=== PATIENT | male | born 1935 | race Caucasian/White ===

== ENCOUNTER 2018-11-05 13:24 | Inpatient (IN) | payer MEDICARE ==
--- NOTE | 2018-11-05 13:44 | ED Physician Chart ---
ED Chief Complaint/HPI - Patient Information Date Seen:: 11/05/18 Time Seen:: 13:30 Chief Complaint:: Generalized weakness for about 3 days. History of Present Illness:: Brought in by ambulance because pt has had generalized weakness for about 3 days. Pt states that he has not been taking po well because he had recurrent nausea/vomiting until yesterday. Vomitus consists of gastric content. No hematemesis. Last BM about 2 days ago that was slightly loose. No hematochezia or melena. No fever. No lightheadedness. No abdominal pain, chest pain, or any other bodily pain. Allergies:: NKA Vitals:: see Nurse Note. Historian:: Patient Family MD/PCP:: Dr. Dee LMP:: N/A Review:: Nurse's Note Reviewed ED Review of Systems - Review of Systems General/Constitutional: No fever, No chills, Weight loss, Weakness (generalized weakness.), No edema, Loss of appetite Skin: No skin lesions, No rash, No bruising Head: No headache, No light-headedness Eyes: No loss of vision, No pain ENT: No earache, No nasal drainage, No sore throat Neck: No neck pain, No swelling, No thyromegaly, No stiffness, No mass noted Cardio Vascular: No chest pain, No palpitations, No edema Pulmonary: No SOB, No cough, No wheezing GI: Nausea (resolved since yesterday.), Vomiting (resolved since yesterday.), No diarrhea, No pain, No melena, No hematochezia, No constipation, No hematemesis G/U: No dysuria, No frequency, No hematuria Musculoskeletal: No bone or joint pain, No back pain Endocrine: No polyuria, No polydipsia Psychiatric: Prior psych history (on antidepressant.), No depression (at the present.), No anxiety, No suicidal ideation, No homicidal ideation, No auditory hallucination, No visual hallucination Hematopoietic: No bruising, No lymphadenopathy Allergic/Immuno: No urticaria, No angioedema Neurological: No syncope, No focal symptoms, Weakness (generalized weakness, see HPI.), No paresthesia, No headache, No dizziness, No confusion ED Past Medical History - Past Medical History Past Medical History: HTN, Other Family History: None Social History: Smoker, Alcohol, No Drug Use, , Other (lives with a roommate.) Employment:: Retired. Surgical History: None Psychiatricy History: Depression Medication: Reviewed Family Medical History - Family Member Mother History Unknown: Yes ED Physical Exam - Physical Examination General/Constitutional: Awake, Well-developed, well-nourished (elderly male.), No distress, GCS 15, Non-toxic appearing Other Gen/Cons comments:: Breathes comfortably, speaks clearly, and interacts normally. Head: Atraumatic Eyes: Lids, conjuctiva normal, PERRL, EOMI Skin: No rash, No ecchymosis, No lymphadenopathy Other Skin comments:: Mucous membrane is slightly dry. ENMT: External ears, nose nl, Nasal exam nl, Oropharynx nl Neck: Nontender, Full ROM w/o pain, No JVD, No nuchal rigidity, No bruit, No mass Respiratory: Nl effort/Exclusion, Clear to Auscultation, No Wheeze/Rhonchi/Rales Cardio Vascular: No murmur, gallop, rubs Other Cardio Vascular comments:: Slightly irregular. GI: No tenderness/rebounding/guarding, No organomegaly, Normal BS's, Nondistended Other GI comments:: Abdomen is soft. : No CVA tenderness Extremities: No tenderness or effusion, Full ROM, No edema Neuro/Psych: Alert/oriented (oriented x 3), Judgement/insight normal, Mood normal, No focal deficits ED Labs/Radiology/EKG Results - Lab Results Results: Laboratory Results - last 24 hr 11/05/18 11/05/18 11/05/18 14:05 14:05 14:05 WBC 7.6 RBC 3.10 L Hgb 11.1 L Hct 32.6 L MCV 104.9 H MCH 35.7 H MCHC Differential 34.0 RDW 12.8 Plt Count 112 L MPV 8.6 Neutrophils % 71.8 Lymphocytes % 14.7 L Monocytes % 12.4 H Eosinophils % 0.3 Basophils % 0.8 PT 10.3 INR 0.99 PTT (Actin FS) 25.4 L Sodium 133 L Potassium 3.2 L Chloride 91 L Carbon Dioxide 30.6 Anion Gap 14.6 BUN 32 H Creatinine 1.4 H Est GFR ( Amer) TNP Est GFR (Non-Af Amer) TNP BUN/Creatinine Ratio 22.9 Glucose 114 H Calcium 9.0 Total Bilirubin 1.9 H AST 64 H ALT 36 Alkaline Phosphatase 68 Troponin I Total Protein 5.8 L Albumin 3.1 L Globulin 2.7 Albumin/Globulin Ratio 1.2 11/05/18 14:05 WBC RBC Hgb Hct MCV MCH MCHC Differential RDW Plt Count MPV Neutrophils % Lymphocytes % Monocytes % Eosinophils % Basophils % PT INR PTT (Actin FS) Sodium Potassium Chloride Carbon Dioxide Anion Gap BUN Creatinine Est GFR ( Amer) Est GFR (Non-Af Amer) BUN/Creatinine Ratio Glucose Calcium Total Bilirubin AST ALT Alkaline Phosphatase Troponin I 0.15 H* Total Protein Albumin Globulin Albumin/Globulin Ratio - EKG Interpretations EKG Time:: 14:17 Rate & Rhythm: Atrial fibrillation with VR 98. Comments:: PVC's. No acute ischemic changes. ED Septic Shock - . Is Septic Shock (SBP<90, OR Lactate>4 mmol\L) present?: No ED Reassessment (Disposition) - Reassessment Reassessment:: 1520 Pt has been repeatedly evaluated. Pt remains stable without chest pain or discomfort. No dyspnea or lightheadedness. EKG and lab findings have been reviewed with pt. Management plan has been discussed. 1650 Case was discussed with Dr. Webster with pertinent info reviewed. Pt is to be admitted to Telemetry [facility] under his care. Reassessment Condition:: Improved - Diagnosis Diagnosis:: New onset atrial fibrillation with mildly elevated troponin. Renal insufficiency with elevated BUN/Creatinine c/w pre-renal azotemia. Mild hyponatremia. Mild hypokalemia. Mild anemia. Mild hyperglycemia. Mild hyperbilirubinemia of unknown significance. Consider Gilbert Syndrome. - Patient Disposition Admitted to:: Telemetry Admitting Medical Physician:: Bon Webster Time:: 16:50 Condition at Disposition:: Stable, Improved
[2018-11-05] MEDS ORDERED: Sodium Chloride 0.9% 1,000 ML IV SCH (13:54)
[2018-11-05 14:14] LABS: % BASOPHILS 0.8 % (0.0-2.0); % EOSINOPHILS 0.3 % (0.0-5.0); % LYMPHOCYTES 14.7 % (20.0-50.0); % MONOCYTES 12.4 % (2.0-10.0); % NEUTROPHILS 71.8 % (40.0-80.0); BASOPHILE ABSOLUTE 0.1 Th/cumm (0-0.2); HEMATOCRIT 32.6 % (41.0-60); HEMOGLOBIN 11.1 gm/dL (12-16); LYMPHOCYTE ABSOLUTE 1.1 Th/cmm (1.5-3.0); MEAN CELL VOLUME 104.9 fl (80-99); MEAN CORPUSCULAR HEMOGLOBIN 35.7 pg (27.0-31.0); MEAN PLATELET VOLUME 8.6 fl; MONOCYTE ABSOLUTE 0.9 Th/cmm (0.3-1.0); NEUTROPHILE ABSOLUTE 5.5 Th/cmm (1.8-8.0); PLATELET COUNT 112 Th/cmm (150-400); RED CELL DISTRIBUTION WIDTH 12.8 % (11.5-20.0); WHITE BLOOD COUNT 7.6 Th/cmm (4.8-10.8)
[2018-11-05 14:27] LABS: INR 0.99 (0.5-1.4); PROTHROMBIN TIME (TEST) 10.3 SECONDS (9.5-11.5)
[2018-11-05 14:31] LABS: ALB/GLOB RATIO 1.2 (1.0-1.8); ALBUMIN 3.1 gm/dL (4.2-5.5); ALKALINE PHOSPHATASE 68 U/L (34-104); ANION GAP 14.6 (7.0-16.0); BILIRUBIN,TOTAL 1.9 mg/dL (0.3-1.0); BUN - UREA NITROGEN 32 mg/dL (7-25); CARBON DIOXIDE 30.6 mEq/L (21.0-31.0); CHLORIDE 91 mEq/L (98-107); CREATININE - SERUM 1.4 mg/dL (0.7-1.3); GLUCOSE 114 mg/dL (70-105); POTASSIUM SERUM 3.2 mEq/L (3.5-5.1); SGOT 64 U/L (13-39); SGPT/ALT 36 U/L (7-52); SODIUM SERUM 133 mEq/L (136-145); TOTAL PROTEIN,SERUM 5.8 gm/dL (6.0-8.3)
[2018-11-05] MEDS ORDERED: Potassium Chloride 20 mEq ER Tab PO ONE ×2 (16:55→17:17)
[2018-11-05 19:15] LABS: URINE SOURCE CLEAN C
[2018-11-05 19:19] LABS: URINE BILIRUBIN MODERATE (NEGATIVE); URINE BLOOD NEGATIVE (NEGATIVE); URINE GLUCOSE (UA) NEGATIVE (NEGATIVE); URINE KETONE 15 mg/dL (NEGATIVE); URINE LEUKOCYTE ESTERASE NEGATIVE (NEGATIVE); URINE MICROSCOPIC INDICATED? YES; URINE NITRATE NEGATIVE (NEGATIVE); URINE PROTEIN TRACE mg/dL (NEGATIVE)
[2018-11-05] MEDS ORDERED: Morphine Sulfate 2 mg/mL 1mL Syr IVP PRN (19:23)
[2018-11-05] MEDS ORDERED: Ipratropium Neb 0.5 mg/2.5 mL UD HHN PRN (19:23)
[2018-11-05] MEDS ORDERED: Albuterol Nebulizer 2.5mg/3mL HHN PRN (19:23)
[2018-11-05 19:40] LABS: URINE CLARITY SLIGHT HAZY (CLEAR); URINE COLOR YELLOW
[2018-11-05 20:25] LABS: URINE EPITHELIAL CELLS RARE /lpf (FEW); URINE ICTOTEST POSITIVE (NEGATIVE); URINE RBC NONE SEEN /hpf (0-5)
[2018-11-05 20:26] LABS: URINE BACTERIA NONE SEEN /hpf (NONE SEEN); URINE WBC 0-2 /hpf (0-5)
--- NOTE | 2018-11-05 20:51 | History & Physical ---
ADMIT DATE: 11/05/2018 CHIEF COMPLAINT: Generalized weakness. HISTORY OF PRESENT ILLNESS: This is an 82-year-old male with history of hypertension, depression/anxiety, admitted from home secondary to not feeling well. The patient was brought to the ER, noted to have elevated troponin as well as irregular heartbeat, which the patient denied in the past. The patient denies chest pain, shortness of breath, or headache at this time. PAST MEDICAL HISTORY: As mentioned in history of present illness. PAST SURGICAL HISTORY: None. ALLERGIES: No known drug allergies. MEDICATIONS: Xanax, Celexa and lisinopril. FAMILY HISTORY: Noncontributory. SOCIAL HISTORY: The patient is a nonsmoker, nondrinker. The patient was an avid smoker, occasional drinker. No intravenous drug use. He is . The patient is retired. REVIEW OF SYSTEMS: GENERAL: Complains of not feeling well. HEENT: No blurred vision. LUNGS: No diagnosis of COPD or asthma. HEART: The patient with hypertension with atrial fibrillation. ABDOMEN: No nausea, vomiting, pain. GENITOURINARY: The patient denies increased frequency or dysuria. NEUROLOGIC: No headache, seizure or syncope. PSYCHIATRIC: As stated above. PHYSICAL EXAMINATION: VITAL SIGNS: Blood pressure 131/70, respiratory rate 18, pulse 70, temperature 98.9 GENERAL: Elderly male who appears his stated age. NECK: Supple. No mass. LUNGS: Equal breath sounds, few rhonchi. HEART: Irregularly irregular. Systolic ejection murmur. ABDOMEN: Soft, globular. EXTREMITIES: Positive excoriation. NEUROLOGIC: Limited. LABORATORY DATA: WBC 6.7, hemoglobin 11, platelets 112. Sodium 132, potassium 3.2, BUN 32, creatinine 1.4, glucose 114. Troponin 0.15. Bilirubin 1.9. UA moderate bilirubin. ASSESSMENT AND PLAN: New-onset atrial fibrillation, generalized weakness, anemia marked with macrocytosis, thrombocytopenia, hyponatremia, hypokalemia, renal insufficiency, elevated liver function tests, elevated troponin. We will continue the patient on oxygen and bronchodilator treatments. We will perform 2D echocardiogram. Check the patient's troponin. We will monitoring the patient's hemoglobin. Check occult blood. We will titrate the patient's antihypertensive medication. We will correct electrolyte abnormalities. We will check vitamin B12, folate. We will check the patient's hepatitis panel. We will refer the patient to Cardiology and perform 2D echocardiogram. We will follow the patient closely in Telemetry. JOB# [id number]
[2018-11-05] MEDS ORDERED: Enoxaparin 40 mg/0.4 mL 0.4mL Syr SUBQ SCH (21:00)
[2018-11-05] MEDS: D5-0.45NS 1,000 ML IV SCH (21:43)
[2018-11-05] MEDS: Enoxaparin 80 mg/0.8 mL 0.8mL Syr SUBQ SCH (22:16)
[2018-11-06 07:04] LABS: ANION GAP 10.5 (7.0-16.0); BUN - UREA NITROGEN 25 mg/dL (7-25); CALCIUM SERUM 8.6 mg/dL (8.6-10.3); CARBON DIOXIDE 30.3 mEq/L (21.0-31.0); CHLORIDE 95 mEq/L (98-107); GLUCOSE 107 mg/dL (70-105); SODIUM SERUM 133 mEq/L (136-145)
[2018-11-06 07:14] LABS: POTASSIUM SERUM 2.8 mEq/L (3.5-5.1)
[2018-11-06 08:00] LABS: EOSINOPHIL 1 % (0-5); LYMPHOCYTE 32 % (20-50); MONOCYTE 10 % (2-10); NEUTROPHILS 57 % (40-80)
[2018-11-06 08:01] LABS: PLATELET ESTIMATE DECREASED PLATELETS (NORMAL)
--- NOTE | 2018-11-06 08:12 | Diagnostic Imaging Report ---
KUB abdominal film HISTORY: Pain There is a nonspecific gas pattern of nondilated bowel. No free peritoneal air. Severe degenerative changes noted in the lower lumbar spine. IMPRESSION: 1. Nonspecific bowel gas pattern with no acute radiographic abnormalities
[2018-11-06 08:48] LABS: WHITE BLOOD COUNT 6.3 Th/cmm (4.8-10.8)
[2018-11-06] MEDS: Enoxaparin 80 mg/0.8 mL 0.8mL Syr SUBQ SCH ×2 (08:55→20:01)
[2018-11-06 08:58] LABS: HEMATOCRIT 29.9 % (41.0-60)
[2018-11-06 08:59] LABS: MEAN CELL VOLUME 106.7 fl (80-99); MEAN CORPUSCULAR HEMOGLOBIN 34.9 pg (27.0-31.0); MEAN CORPUSCULAR HGB CONC 32.6 pg (28.0-36.0); PLATELET COUNT 93 Th/cmm (150-400); RED CELL DISTRIBUTION WIDTH 12.8 % (11.5-20.0)
[2018-11-06 09:00] LABS: MEAN PLATELET VOLUME 8.3 fl
[2018-11-06 09:01] LABS: HEMOGLOBIN 9.8 gm/dL (12-16)
[2018-11-06] MEDS ORDERED: Potassium Chloride 40 MEQ, Lidocaine 1% 20mL Vial 25 MG in Sodium Chloride 0.9% 250 ML IV ONE (10:00)
[2018-11-06] MEDS: D5-0.45NS 1,000 ML IV SCH ×2 (10:20→21:11)
[2018-11-06 10:43] LABS: ROULEAUX 2+
--- NOTE | 2018-11-06 13:09 | Internal Medicine Prog Note ---
Internal Medicine Subjective - Subjective Patient seen and examined:: with staff, chart reviewed Patient is:: awake, verbal, interactive Patient Complaints of:: congestion Per staff patient has:: no adverse event, no episodes of fall, poor appetite, tolerating meds Internal Medicine Objective - Results Result Diagrams: 11/06/18 06:00 11/06/18 06:00 Recent Labs: Laboratory Last Values WBC 6.3 Th/cmm (4.8-10.8) 11/06/18 06:00 RBC 2.80 Mil/cmm (3.80-5.80) L 11/06/18 06:00 Hgb 9.8 gm/dL (12-16) L 11/06/18 06:00 Hct 29.9 % (41.0-60) L 11/06/18 06:00 MCV 106.7 fl (80-99) H 11/06/18 06:00 MCH 34.9 pg (27.0-31.0) H 11/06/18 06:00 MCHC Differential 32.6 pg (28.0-36.0) 11/06/18 06:00 RDW 12.8 % (11.5-20.0) 11/06/18 06:00 Plt Count 93 Th/cmm (150-400) L 11/06/18 06:00 MPV 8.3 fl 11/06/18 06:00 Add Manual Diff YES 11/06/18 06:00 Neutrophils % S[employer]IOR DATA MINING ANALYST 11/06/18 06:00 Lymphocytes % S[employer]IOR DATA MINING ANALYST 11/06/18 06:00 Monocytes % SENIOR DATA MINING ANALYST 11/06/18 06:00 Eosinophils % SENIOR DATA MINING ANALYST 11/06/18 06:00 Basophils % SENIOR DATA MINING ANALYST 11/06/18 06:00 Neutrophils (Manual) 57 % (40-80) 11/06/18 06:00 Lymphocytes 32 % (20-50) 11/06/18 06:00 Monocytes 10 % (2-10) 11/06/18 06:00 Eosinophils 1 % (0-5) 11/06/18 06:00 Platelet Estimate DECREASED PLATELETS (NORMAL) 11/06/18 06:00 Macrocytosis 2+ 11/06/18 06:00 Rouleaux 2+ 11/06/18 06:00 PT 10.3 SECONDS (9.5-11.5) 11/05/18 14:05 INR 0.99 (0.5-1.4) 11/05/18 14:05 PTT (Actin FS) 25.4 SECONDS (26.0-38.0) L 11/05/18 14:05 Sodium 133 mEq/L (136-145) L 11/06/18 06:00 Potassium 2.8 mEq/L (3.5-5.1) L* 11/06/18 06:00 Chloride 95 mEq/L (98-107) L 11/06/18 06:00 Carbon Dioxide 30.3 mEq/L (21.0-31.0) 11/06/18 06:00 Anion Gap 10.5 (7.0-16.0) 11/06/18 06:00 BUN 25 mg/dL (7-25) 11/06/18 06:00 Creatinine 1.0 mg/dL (0.7-1.3) 11/06/18 06:00 Est GFR ( Amer) TNP 11/06/18 06:00 Est GFR (Non-Af Amer) TNP 11/06/18 06:00 BUN/Creatinine Ratio 25.0 11/06/18 06:00 Glucose 107 mg/dL (70-105) H 11/06/18 06:00 Calcium 8.6 mg/dL (8.6-10.3) 11/06/18 06:00 Total Bilirubin 1.9 mg/dL (0.3-1.0) H 11/05/18 14:05 AST 64 U/L (13-39) H 11/05/18 14:05 ALT 36 U/L (7-52) 11/05/18 14:05 Alkaline Phosphatase 68 U/L (34-104) 11/05/18 14:05 Troponin I 0.15 ng/mL (0.01-0.05) H* 11/05/18 14:05 B-Natriuretic Peptide 369.0 pg/mL (5.0-100.0) H 11/06/18 06:00 Total Protein 5.8 gm/dL (6.0-8.3) L 11/05/18 14:05 Albumin 3.1 gm/dL (4.2-5.5) L 11/05/18 14:05 Globulin 2.7 gm/dL 11/05/18 14:05 Albumin/Globulin Ratio 1.2 (1.0-1.8) 11/05/18 14:05 TSH 0.98 uIU/ml (0.34-5.60) 11/06/18 06:00 Urine Source CLEAN C 11/05/18 19:00 Urine Color YELLOW 11/05/18 19:00 Urine Clarity SLIGHT HAZY (CLEAR) 11/05/18 19:00 Urine pH 6.0 (4.6 - 8.0) 11/05/18 19:00 Ur Specific [place] 1.015 (1.005-1.030) 11/05/18 19:00 Urine Protein TRACE mg/dL (NEGATIVE) 11/05/18 19:00 Urine Glucose (UA) NEGATIVE mg/dL (NEGATIVE) 11/05/18 19:00 Urine Ketones 15 mg/dL (NEGATIVE) H 11/05/18 19:00 Urine Blood NEGATIVE (NEGATIVE) 11/05/18 19:00 Urine Nitrate NEGATIVE (NEGATIVE) 11/05/18 19:00 Urine Bilirubin MODERATE (NEGATIVE) H 11/05/18 19:00 Urine Ictotest POSITIVE (NEGATIVE) H 11/05/18 19:00 Urine Urobilinogen 2.0 E.U./dL (0.2 - 1.0) 11/05/18 19:00 Ur Leukocyte Esterase NEGATIVE (NEGATIVE) 11/05/18 19:00 Urine RBC NONE SEEN /hpf (0-5) 11/05/18 19:00 Urine WBC 0-2 /hpf (0-5) 11/05/18 19:00 Ur Epithelial Cells RARE /lpf (FEW) 11/05/18 19:00 Urine Bacteria NONE SEEN /hpf (NONE SEEN) 11/05/18 19:00 - Physical Exam Vitals and I&O: Vital Signs Temp 97.7 F 11/06/18 11:48 Pulse 81 11/06/18 11:48 Resp 19 11/06/18 11:48 BP 122/70 11/06/18 11:48 Pulse Ox 99 11/06/18 11:48 Intake & Output 11/05/18 11/06/18 11/06/18 18:59 06:59 18:59 Intake Total 800 1000 Balance 800 1000 Weight (lbs) 74.843 kg Intake: Intake, IV Amount 800 1000 D5-0.45NS 1,000 ml @ 80 1000 mls/hr IV .[id number] [facility] Rx #:[id number] Other: Stool Characteristics Formed Formed Weight Source Patient stated Active Medications: Current Medications Acetaminophen (Tylenol) 650 mg PO Q4H PRN PRN Reason: Pain Or Fever above 101 Stop: 01/04/19 19:22 Al Hydrox/Mg Hydrox/Simethicone (Maalox) 30 ml PO Q6H PRN PRN Reason: Dyspepsia Stop: 01/04/19 19:22 Albuterol Sulfate (Albuterol 2.5mg/3ml Neb Ud) 2.5 mg HHN Q2HRT PRN PRN Reason: Shortness of Breath or Wheeze Stop: 01/04/19 19:22 Alprazolam (Xanax) 0.5 mg PO DAILY PRN; Protocol PRN Reason: Anxiety Stop: 01/05/19 08:59 Last Admin: 11/05/18 21:47 Dose: 0.5 mg Citalopram Hydrobromide (Celexa) 20 mg PO DAILY [facility]; Protocol Stop: 01/05/19 08:59 Last Admin: 11/06/18 08:55 Dose: 20 mg Enoxaparin Sodium (Lovenox) 70 mg SUBQ Q12HR [facility] Stop: 01/04/19 20:59 Last Admin: 11/06/18 08:55 Dose: Not Given Dextrose/Sodium Chloride (D5-0.45ns) 1,000 mls @ 80 mls/hr IV .[id number] [facility] Stop: 01/04/19 19:29 Last Admin: 11/06/18 10:20 Dose: 80 mls/hr Potassium Chloride 40 meq/Lidocaine HCl 25 mg/ Sodium Chloride 272.5 mls @ 68 mls/hr IV X1 ONE Stop: 11/06/18 14:00 Last Admin: 11/06/18 10:10 Dose: 68 mls/hr Ipratropium [place] (Atrovent Neb 0.5mg/2.5ml) 0.5 mg HHN Q2HRT PRN PRN Reason: Shortness of Breath or Wheeze Stop: 01/04/19 19:22 Lisinopril (Zestril) 20 mg PO DAILY [facility] Stop: 01/05/19 08:59 Last Admin: 11/06/18 08:55 Dose: 20 mg Morphine Sulfate (Morphine) 2 mg IVP Q4H PRN PRN Reason: Pain (Severe) Stop: 01/04/19 19:22 Nitroglycerin (Nitrostat) 0.4 mg SL Q5MIN PRN PRN Reason: Chest Pain Stop: 01/04/19 19:22 Ondansetron HCl (Zofran) 4 mg IV Q8H PRN PRN Reason: Nausea / Vomiting Stop: 01/04/19 19:22 Zolpidem Tartrate (Ambien) 10 mg PO HS PRN PRN Reason: Insomnia Stop: 01/04/19 19:22 General: lethargic, appears older HEENT: NC/AT, PERRLA, EOMI Neck: Supple, No JVD Cardiovascular: Normal S1, Normal S2, with murmur Abdomen: soft, non-tender, positive bowel sound Extremities: excoriation Neurological: no change, muscle weakness Internal Medicine Assmt/Plan - Assessment Assessment: ASSESSMENT AND PLAN: New-onset atrial fibrillation, generalized weakness, anemia marked with macrocytosis, thrombocytopenia, hyponatremia, hypokalemia, renal insufficiency, elevated liver function tests, elevated troponin. - Plan Plan: We will continue the patient on oxygen and bronchodilator treatments. We will perform 2D echocardiogram. Check the patient's troponin. We will monitoring the patient's hemoglobin. Check occult blood. We will titrate the patient's antihypertensive medication. We will correct electrolyte abnormalities. We will check vitamin B12, folate. We will check the patient's hepatitis panel. We will refer the patient to Cardiology and perform 2D echocardiogram. We will follow the patient closely in Telemetry.
--- NOTE | 2018-11-07 01:12 | Consultation ---
DATE OF CONSULTATION: 11/06/[address] Webster. HISTORY AND PHYSICAL: This is an 82-year-old male patient, who came to the Emergency Room complaining of generalized weakness. The patient was found to have hypokalemia, new onset atrial fibrillation, and hence the patient is admitted. Cardiac consult is requested. PAST MEDICAL HISTORY: 1. Hypokalemia. 2. anemia. 3. Thrombocytopenia. 4. PVCs. FAMILY HISTORY: Unremarkable. SOCIAL HISTORY: No history of smoking or alcohol abuse. ALLERGIES: None. PHYSICAL EXAMINATION: VITAL SIGNS: Blood pressure 128/80; pulse 70, irregular; and respirations 28. HEAD: Normocephalic. No lumps or bumps. EYES: Pupils equal, reactive to light. Fundi show AV nicking, sclerae white, conjunctivae pink. NECK: Carotid 2+. Normal upstroke. JVD flat. Thyroid not palpable. Lymph nodes not palpable. CHEST: Shows increased AP diameter. No kyphosis or scoliosis. LUNGS: Bilateral bronchovesicular breath sounds. HEART: PMI fifth intercostal space with lateral to midclavicular line. S1, S2. No S3, S4. S1 irregular. Systolic murmur, grade 2/6, lower left sternal border without radiation. ABDOMEN: Soft. Liver and spleen not palpable. No organomegaly. Bowel sounds active. NEUROLOGIC: Unremarkable. EXTREMITIES: Peripheral pulses 2+. No pedal edema. CLINICAL IMPRESSION: 1. New onset atrial fibrillation. 2. Hypokalemia. 3. Hyponatremia. 4. anemia. 5. Thrombocytopenia. PLAN: The patient has PVCs and slightly elevated troponin level which is of non-significance. Continue present medication, anticoagulate the patient, and echocardiogram. JOB# [id number]
[2018-11-07 06:54] LABS: ALKALINE PHOSPHATASE 72 U/L (34-104); ANION GAP 9.8 (7.0-16.0); BILIRUBIN,TOTAL 1.2 mg/dL (0.3-1.0); BUN - UREA NITROGEN 13 mg/dL (7-25); CALCIUM SERUM 8.7 mg/dL (8.6-10.3); CARBON DIOXIDE 30.4 mEq/L (21.0-31.0); CHLORIDE 95 mEq/L (98-107); CREATININE - SERUM 0.9 mg/dL (0.7-1.3); GLUCOSE 105 mg/dL (70-105); MAGNESIUM 1.2 mg/dL (1.9-2.7); POTASSIUM SERUM 3.2 mEq/L (3.5-5.1); SGOT 86 U/L (13-39); SGPT/ALT 39 U/L (7-52); SODIUM SERUM 132 mEq/L (136-145)
[2018-11-07 07:35] LABS: % BASOPHILS 0.5 % (0.0-2.0); % LYMPHOCYTES 36.2 % (20.0-50.0); % MONOCYTES 10.7 % (2.0-10.0); % NEUTROPHILS 51.6 % (40.0-80.0); EOSINOPHILE ABSOLUTE 0.1 Th/cmm (0.1-0.4); HEMATOCRIT 32.3 % (41.0-60); HEMOGLOBIN 10.9 gm/dL (12-16); LYMPHOCYTE ABSOLUTE 2.6 Th/cmm (1.5-3.0); MEAN CELL VOLUME 103.8 fl (80-99); MEAN CORPUSCULAR HEMOGLOBIN 35.1 pg (27.0-31.0); MEAN CORPUSCULAR HGB CONC 33.8 pg (28.0-36.0); MEAN PLATELET VOLUME 7.9 fl; MONOCYTE ABSOLUTE 0.8 Th/cmm (0.3-1.0); NEUTROPHILE ABSOLUTE 3.8 Th/cmm (1.8-8.0); PLATELET COUNT 130 Th/cmm (150-400); RED BLOOD COUNT 3.11 Mil/cmm (3.80-5.80); RED CELL DISTRIBUTION WIDTH 13.1 % (11.5-20.0); WHITE BLOOD COUNT 7.3 Th/cmm (4.8-10.8)
[2018-11-07] MEDS: Maalox 30 mL Cup PO PRN ×2 (09:07→18:08)
[2018-11-07] MEDS: Enoxaparin 80 mg/0.8 mL 0.8mL Syr SUBQ SCH (11:16)
[2018-11-07 12:05] LABS: AFP TUMOR MARKER 3.1 ng/mL (0.0-8.3); HEP A AB IGM Negative (Negative); HEP B CORE IGM Negative (Negative); HEP B SURFACE AG QL Negative (Negative); HEP C ANTIBODY <0.1 s/co ratio (0.0-0.9)
[2018-11-07] MEDS ORDERED: Mag Sulfate 2gm/50mL Premix 2 GM/50 ML BAG IV ONE (12:22)
[2018-11-07] MEDS ORDERED: Potassium Chloride 20 mEq ER Tab PO ONE (12:22)
--- NOTE | 2018-11-07 12:24 | Internal Medicine Prog Note ---
Internal Medicine Subjective - Subjective Patient seen and examined:: with staff, chart reviewed Patient is:: awake, verbal, interactive Patient Complaints of:: congestion Per staff patient has:: no adverse event, no episodes of fall, poor appetite, tolerating meds Internal Medicine Objective - Results Result Diagrams: 11/07/18 06:10 11/07/18 06:10 Recent Labs: Laboratory Last Values WBC 7.3 Th/cmm (4.8-10.8) 11/07/18 06:10 RBC 3.11 Mil/cmm (3.80-5.80) L 11/07/18 06:10 Hgb 10.9 gm/dL (12-16) L 11/07/18 06:10 Hct 32.3 % (41.0-60) L 11/07/18 06:10 MCV 103.8 fl (80-99) H 11/07/18 06:10 MCH 35.1 pg (27.0-31.0) H 11/07/18 06:10 MCHC Differential 33.8 pg (28.0-36.0) 11/07/18 06:10 RDW 13.1 % (11.5-20.0) 11/07/18 06:10 Plt Count 130 Th/cmm (150-400) L 11/07/18 06:10 MPV 7.9 fl 11/07/18 06:10 Add Manual Diff YES 11/06/18 06:00 Neutrophils % 51.6 % (40.0-80.0) 11/07/18 06:10 Lymphocytes % 36.2 % (20.0-50.0) 11/07/18 06:10 Monocytes % 10.7 % (2.0-10.0) H 11/07/18 06:10 Eosinophils % 1.0 % (0.0-5.0) 11/07/18 06:10 Basophils % 0.5 % (0.0-2.0) 11/07/18 06:10 Neutrophils (Manual) 57 % (40-80) 11/06/18 06:00 Lymphocytes 32 % (20-50) 11/06/18 06:00 Monocytes 10 % (2-10) 11/06/18 06:00 Eosinophils 1 % (0-5) 11/06/18 06:00 Platelet Estimate DECREASED PLATELETS (NORMAL) 11/06/18 06:00 Macrocytosis 2+ 11/06/18 06:00 Rouleaux 2+ 11/06/18 06:00 Smear Path Review 11/07/18 06:10 PT 10.3 SECONDS (9.5-11.5) 11/05/18 14:05 INR 0.99 (0.5-1.4) 11/05/18 14:05 PTT (Actin FS) 25.4 SECONDS (26.0-38.0) L 11/05/18 14:05 Sodium 132 mEq/L (136-145) L 11/07/18 06:10 Potassium 3.2 mEq/L (3.5-5.1) L 11/07/18 06:10 Chloride 95 mEq/L (98-107) L 11/07/18 06:10 Carbon Dioxide 30.4 mEq/L (21.0-31.0) 11/07/18 06:10 Anion Gap 9.8 (7.0-16.0) 11/07/18 06:10 BUN 13 mg/dL (7-25) 11/07/18 06:10 Creatinine 0.9 mg/dL (0.7-1.3) 11/07/18 06:10 Est GFR ( Amer) TNP 11/07/18 06:10 Est GFR (Non-Af Amer) TNP 11/07/18 06:10 BUN/Creatinine Ratio 14.4 11/07/18 06:10 Glucose 105 mg/dL (70-105) 11/07/18 06:10 Calcium 8.7 mg/dL (8.6-10.3) 11/07/18 06:10 Magnesium 1.2 mg/dL (1.9-2.7) L 11/07/18 06:10 Total Bilirubin 1.2 mg/dL (0.3-1.0) H 11/07/18 06:10 AST 86 U/L (13-39) H 11/07/18 06:10 ALT 39 U/L (7-52) 11/07/18 06:10 Alkaline Phosphatase 72 U/L (34-104) 11/07/18 06:10 Troponin I 0.04 ng/mL (0.01-0.05) 11/06/18 21:15 B-Natriuretic Peptide 369.0 pg/mL (5.0-100.0) H 11/06/18 06:00 Total Protein 5.8 gm/dL (6.0-8.3) L 11/05/18 14:05 Albumin 3.0 gm/dL (4.2-5.5) L 11/07/18 06:10 Globulin 2.7 gm/dL 11/05/18 14:05 Albumin/Globulin Ratio 1.2 (1.0-1.8) 11/05/18 14:05 Tumor Marker AFP 3.1 ng/mL (0.0-8.3) 11/06/18 06:00 Free T4 1.42 ng/dL (0.82-1.77) 11/06/18 06:00 TSH 0.98 uIU/ml (0.34-5.60) 11/06/18 06:00 Urine Source CLEAN C 11/05/18 19:00 Urine Color YELLOW 11/05/18 19:00 Urine Clarity SLIGHT HAZY (CLEAR) 11/05/18 19:00 Urine pH 6.0 (4.6 - 8.0) 11/05/18 19:00 Ur Specific [place] 1.015 (1.005-1.030) 11/05/18 19:00 Urine Protein TRACE mg/dL (NEGATIVE) 11/05/18 19:00 Urine Glucose (UA) NEGATIVE mg/dL (NEGATIVE) 11/05/18 19:00 Urine Ketones 15 mg/dL (NEGATIVE) H 11/05/18 19:00 Urine Blood NEGATIVE (NEGATIVE) 11/05/18 19:00 Urine Nitrate NEGATIVE (NEGATIVE) 11/05/18 19:00 Urine Bilirubin MODERATE (NEGATIVE) H 11/05/18 19:00 Urine Ictotest POSITIVE (NEGATIVE) H 11/05/18 19:00 Urine Urobilinogen 2.0 E.U./dL (0.2 - 1.0) 11/05/18 19:00 Ur Leukocyte Esterase NEGATIVE (NEGATIVE) 11/05/18 19:00 Urine RBC NONE SEEN /hpf (0-5) 11/05/18 19:00 Urine WBC 0-2 /hpf (0-5) 11/05/18 19:00 Ur Epithelial Cells RARE /lpf (FEW) 11/05/18 19:00 Urine Bacteria NONE SEEN /hpf (NONE SEEN) 11/05/18 19:00 Hepatitis A IgM Ab Negative (Negative) 11/06/18 06:00 Hep Bs Antigen Negative (Negative) 11/06/18 06:00 Hep B Core IgM Ab Negative (Negative) 11/06/18 06:00 Hepatitis C Antibody <0.1 s/co ratio (0.0-0.9) 11/06/18 06:00 - Physical Exam Vitals and I&O: Vital Signs Temp 98.3 F 11/07/18 12:00 Pulse 76 11/07/18 12:00 Resp 19 11/07/18 12:00 BP 133/73 11/07/18 12:00 Pulse Ox 99 11/07/18 12:00 Intake & Output 11/06/18 11/07/18 11/07/18 18:59 06:59 18:59 Intake Total 1950 1018 Balance 1950 1018 Weight (lbs) 74.843 kg 74.843 kg Intake: Intake, IV Amount 1000 868 D5-0.45NS 1,000 ml @ 80 1000 868 mls/hr IV .[id number] [facility] Rx #:[id number] Oral 950 150 Other: # Voids 3 4 # Bowel Movements 0 0 Weight Source Bedscale Patient stated Active Medications: Current Medications Acetaminophen (Tylenol) 650 mg PO Q4H PRN PRN Reason: Pain Or Fever above 101 Stop: 01/04/19 19:22 Al Hydrox/Mg Hydrox/Simethicone (Maalox) 30 ml PO Q6H PRN PRN Reason: Dyspepsia Stop: 01/04/19 19:22 Last Admin: 11/07/18 09:07 Dose: 30 ml Albuterol Sulfate (Albuterol 2.5mg/3ml Neb Ud) 2.5 mg HHN Q2HRT PRN PRN Reason: Shortness of Breath or Wheeze Stop: 01/04/19 19:22 Alprazolam (Xanax) 0.5 mg PO DAILY PRN; Protocol PRN Reason: Anxiety Stop: 01/05/19 08:59 Last Admin: 11/06/18 21:11 Dose: 0.5 mg Citalopram Hydrobromide (Celexa) 20 mg PO DAILY [facility]; Protocol Stop: 01/05/19 08:59 Last Admin: 11/07/18 09:04 Dose: 20 mg Dextrose/Sodium Chloride (D5-0.45ns) 1,000 mls @ 80 mls/hr IV .[id number] [facility] Stop: 01/04/19 19:29 Last Admin: 11/06/18 21:11 Dose: 80 mls/hr Ipratropium [place] (Atrovent Neb 0.5mg/2.5ml) 0.5 mg HHN Q2HRT PRN PRN Reason: Shortness of Breath or Wheeze Stop: 01/04/19 19:22 Lisinopril (Zestril) 20 mg PO DAILY [facility] Stop: 01/05/19 08:59 Last Admin: 11/07/18 09:04 Dose: 20 mg Morphine Sulfate (Morphine) 2 mg IVP Q4H PRN PRN Reason: Pain (Severe) Stop: 01/04/19 19:22 Nitroglycerin (Nitrostat) 0.4 mg SL Q5MIN PRN PRN Reason: Chest Pain Stop: 01/04/19 19:22 Ondansetron HCl (Zofran) 4 mg IV Q8H PRN PRN Reason: Nausea / Vomiting Stop: 01/04/19 19:22 Zolpidem Tartrate (Ambien) 10 mg PO HS PRN PRN Reason: Insomnia Stop: 01/04/19 19:22 General: lethargic, appears older HEENT: NC/AT, PERRLA, EOMI Neck: Supple, No JVD Cardiovascular: Normal S1, Normal S2, with murmur Abdomen: soft, non-tender, positive bowel sound Extremities: excoriation Neurological: no change, muscle weakness Internal Medicine Assmt/Plan - Assessment Assessment: ASSESSMENT AND PLAN: New-onset atrial fibrillation, generalized weakness, anemia marked with macrocytosis, thrombocytopenia, hyponatremia, hypokalemia, renal insufficiency, elevated liver function tests, elevated troponin. gerd - Plan Plan: We will continue the patient on oxygen and bronchodilator treatments. We will perform 2D echocardiogram. Check the patient's troponin. We will monitoring the patient's hemoglobin. Check occult blood. We will titrate the patient's antihypertensive medication. We will correct electrolyte abnormalities. We will check vitamin B12, folate. We will check the patient's hepatitis panel. We will refer the patient to Cardiology and perform 2D echocardiogram. We will follow the patient closely in Telemetry. add ppi replace lytes
[2018-11-07] MEDS: D5-0.45NS 1,000 ML IV SCH (12:33)
[2018-11-07 12:57] LABS: ALB/GLOB RATIO 1.2 (1.0-1.8); TOTAL PROTEIN,SERUM 5.6 gm/dL (6.0-8.3)
--- NOTE | 2018-11-07 13:25 | General Progress Note ---
Subjective - Review of Systems Service Date: 11/07/18 Subjective: Patient clinically stable no acute distress no complaining of palpitation Objective - Results Result Diagrams: 11/07/18 06:10 11/07/18 06:10 Recent Labs: Laboratory Last Values WBC 7.3 Th/cmm (4.8-10.8) 11/07/18 06:10 RBC 3.11 Mil/cmm (3.80-5.80) L 11/07/18 06:10 Hgb 10.9 gm/dL (12-16) L 11/07/18 06:10 Hct 32.3 % (41.0-60) L 11/07/18 06:10 MCV 103.8 fl (80-99) H 11/07/18 06:10 MCH 35.1 pg (27.0-31.0) H 11/07/18 06:10 MCHC Differential 33.8 pg (28.0-36.0) 11/07/18 06:10 RDW 13.1 % (11.5-20.0) 11/07/18 06:10 Plt Count 130 Th/cmm (150-400) L 11/07/18 06:10 MPV 7.9 fl 11/07/18 06:10 Add Manual Diff YES 11/06/18 06:00 Neutrophils % 51.6 % (40.0-80.0) 11/07/18 06:10 Lymphocytes % 36.2 % (20.0-50.0) 11/07/18 06:10 Monocytes % 10.7 % (2.0-10.0) H 11/07/18 06:10 Eosinophils % 1.0 % (0.0-5.0) 11/07/18 06:10 Basophils % 0.5 % (0.0-2.0) 11/07/18 06:10 Neutrophils (Manual) 57 % (40-80) 11/06/18 06:00 Lymphocytes 32 % (20-50) 11/06/18 06:00 Monocytes 10 % (2-10) 11/06/18 06:00 Eosinophils 1 % (0-5) 11/06/18 06:00 Platelet Estimate DECREASED PLATELETS (NORMAL) 11/06/18 06:00 Macrocytosis 2+ 11/06/18 06:00 Rouleaux 2+ 11/06/18 06:00 Smear Path Review 11/07/18 06:10 PT 10.3 SECONDS (9.5-11.5) 11/05/18 14:05 INR 0.99 (0.5-1.4) 11/05/18 14:05 PTT (Actin FS) 25.4 SECONDS (26.0-38.0) L 11/05/18 14:05 Sodium 132 mEq/L (136-145) L 11/07/18 06:10 Potassium 3.2 mEq/L (3.5-5.1) L 11/07/18 06:10 Chloride 95 mEq/L (98-107) L 11/07/18 06:10 Carbon Dioxide 30.4 mEq/L (21.0-31.0) 11/07/18 06:10 Anion Gap 9.8 (7.0-16.0) 11/07/18 06:10 BUN 13 mg/dL (7-25) 11/07/18 06:10 Creatinine 0.9 mg/dL (0.7-1.3) 11/07/18 06:10 Est GFR ( Amer) TNP 11/07/18 06:10 Est GFR (Non-Af Amer) TNP 11/07/18 06:10 BUN/Creatinine Ratio 14.4 11/07/18 06:10 Glucose 105 mg/dL (70-105) 11/07/18 06:10 Calcium 8.7 mg/dL (8.6-10.3) 11/07/18 06:10 Magnesium 1.2 mg/dL (1.9-2.7) L 11/07/18 06:10 Total Bilirubin 1.2 mg/dL (0.3-1.0) H 11/07/18 06:10 AST 86 U/L (13-39) H 11/07/18 06:10 ALT 39 U/L (7-52) 11/07/18 06:10 Alkaline Phosphatase 72 U/L (34-104) 11/07/18 06:10 Troponin I 0.04 ng/mL (0.01-0.05) 11/06/18 21:15 B-Natriuretic Peptide 369.0 pg/mL (5.0-100.0) H 11/06/18 06:00 Total Protein 5.6 gm/dL (6.0-8.3) L 11/07/18 06:10 Albumin 3.0 gm/dL (4.2-5.5) L 11/07/18 06:10 Globulin 2.6 gm/dL 11/07/18 06:10 Albumin/Globulin Ratio 1.2 (1.0-1.8) 11/07/18 06:10 Tumor Marker AFP 3.1 ng/mL (0.0-8.3) 11/06/18 06:00 Vitamin B12 386 pg/mL (232-1245) 11/06/18 06:00 Folic Acid 3.0 ng/mL (>3.0) L 11/06/18 06:00 Free T4 1.42 ng/dL (0.82-1.77) 11/06/18 06:00 TSH 0.98 uIU/ml (0.34-5.60) 11/06/18 06:00 Urine Source CLEAN C 11/05/18 19:00 Urine Color YELLOW 11/05/18 19:00 Urine Clarity SLIGHT HAZY (CLEAR) 11/05/18 19:00 Urine pH 6.0 (4.6 - 8.0) 11/05/18 19:00 Ur Specific [place] 1.015 (1.005-1.030) 11/05/18 19:00 Urine Protein TRACE mg/dL (NEGATIVE) 11/05/18 19:00 Urine Glucose (UA) NEGATIVE mg/dL (NEGATIVE) 11/05/18 19:00 Urine Ketones 15 mg/dL (NEGATIVE) H 11/05/18 19:00 Urine Blood NEGATIVE (NEGATIVE) 11/05/18 19:00 Urine Nitrate NEGATIVE (NEGATIVE) 11/05/18 19:00 Urine Bilirubin MODERATE (NEGATIVE) H 11/05/18 19:00 Urine Ictotest POSITIVE (NEGATIVE) H 11/05/18 19:00 Urine Urobilinogen 2.0 E.U./dL (0.2 - 1.0) 11/05/18 19:00 Ur Leukocyte Esterase NEGATIVE (NEGATIVE) 11/05/18 19:00 Urine RBC NONE SEEN /hpf (0-5) 11/05/18 19:00 Urine WBC 0-2 /hpf (0-5) 11/05/18 19:00 Ur Epithelial Cells RARE /lpf (FEW) 11/05/18 19:00 Urine Bacteria NONE SEEN /hpf (NONE SEEN) 11/05/18 19:00 Hepatitis A IgM Ab Negative (Negative) 11/06/18 06:00 Hep Bs Antigen Negative (Negative) 11/06/18 06:00 Hep B Core IgM Ab Negative (Negative) 11/06/18 06:00 Hepatitis C Antibody <0.1 s/co ratio (0.0-0.9) 11/06/18 06:00 - Physical Exam Vitals and I&O: Vital Signs Temp 98.3 F 11/07/18 12:00 Pulse 76 11/07/18 12:00 Resp 19 11/07/18 12:00 BP 133/73 11/07/18 12:00 Pulse Ox 99 11/07/18 12:00 Intake & Output 11/06/18 11/07/18 11/07/18 18:59 06:59 18:59 Intake Total 1950 1018 1000 Balance 1950 1018 1000 Weight (lbs) 74.843 kg 74.843 kg Intake: Intake, IV Amount 5438 065 8555 D5-0.45NS 1,000 ml @ 80 0700 989 8330 mls/hr IV .[id number] [facility] Rx #:[id number] Oral 950 150 Other: # Voids 3 4 # Bowel Movements 0 0 Weight Source Bedscale Patient stated Active Medications: Current Medications Acetaminophen (Tylenol) 650 mg PO Q4H PRN PRN Reason: Pain Or Fever above 101 Stop: 01/04/19 19:22 Al Hydrox/Mg Hydrox/Simethicone (Maalox) 30 ml PO Q6H PRN PRN Reason: Dyspepsia Stop: 01/04/19 19:22 Last Admin: 11/07/18 09:07 Dose: 30 ml Albuterol Sulfate (Albuterol 2.5mg/3ml Neb Ud) 2.5 mg HHN Q2HRT PRN PRN Reason: Shortness of Breath or Wheeze Stop: 01/04/19 19:22 Alprazolam (Xanax) 0.5 mg PO DAILY PRN; Protocol PRN Reason: Anxiety Stop: 01/05/19 08:59 Last Admin: 11/06/18 21:11 Dose: 0.5 mg Citalopram Hydrobromide (Celexa) 20 mg PO DAILY [facility]; Protocol Stop: 01/05/19 08:59 Last Admin: 11/07/18 09:04 Dose: 20 mg Dextrose/Sodium Chloride (D5-0.45ns) 1,000 mls @ 80 mls/hr IV .[id number] [facility] Stop: 01/04/19 19:29 Last Admin: 11/07/18 12:33 Dose: 80 mls/hr Magnesium Sulfate (Magnesium Sulfate Premix) 2 gm in 50 mls @ 25 mls/hr IV X1 ONE Stop: 11/07/18 14:21 Last Admin: 11/07/18 12:33 Dose: 25 mls/hr Ipratropium [place] (Atrovent Neb 0.5mg/2.5ml) 0.5 mg HHN Q2HRT PRN PRN Reason: Shortness of Breath or Wheeze Stop: 01/04/19 19:22 Lisinopril (Zestril) 20 mg PO DAILY [facility] Stop: 01/05/19 08:59 Last Admin: 11/07/18 09:04 Dose: 20 mg Morphine Sulfate (Morphine) 2 mg IVP Q4H PRN PRN Reason: Pain (Severe) Stop: 01/04/19 19:22 Nitroglycerin (Nitrostat) 0.4 mg SL Q5MIN PRN PRN Reason: Chest Pain Stop: 01/04/19 19:22 Ondansetron HCl (Zofran) 4 mg IV Q8H PRN PRN Reason: Nausea / Vomiting Stop: 01/04/19 19:22 Pantoprazole Sodium (Protonix) 40 mg PO BID [facility] Stop: 01/06/19 16:59 Rivaroxaban (Xarelto) 10 mg PO DAILY [facility] Stop: 01/07/19 08:59 Zolpidem Tartrate (Ambien) 10 mg PO HS PRN PRN Reason: Insomnia Stop: 01/04/19 19:22 General: Alert, No acute distress Neck: Supple, +2 carotid pulse wo bruit Cardiovascular: Systolic murmurs (atrial fibrillation), Other Lungs: Clear to auscultation, Normal air movement Abdomen: Bowel sounds (soft), Soft Extremities: Clubbing, Pulses, Tender Neurological: Cranial nerves 3-12 NL, Reflexes 2+ Assessment/Plan - Problem List Patient Problems: All Active Problems WEAKNESS AND INCONTINENCE (Acute) - Assessment Assessment: Atrial fibrillation Hypokalemia Macrocyte tic anemia anemia Thrombocytopenia - Plan Plan: Continue present management will stop digoxin potassium supplement and is able supplement
--- NOTE | 2018-11-07 14:37 | Cardiology ---
11/06/[address] Webster. M-MODE ECHOCARDIOGRAM: Mitral valve, anterior leaflet of mitral valve shows normal excursion, EF velocity. Posterior leaflet of the mitral valve shows normal excursion. Left ventricular posterior wall shows increased thickness, normal excursion. Interventricular septum shows increased thickness, normal excursion, hypertrophy of the left ventricle, ejection fraction 70%. Left atrium normal. Aortic root shows normal dimension, normal excursion of aortic leaflets. CONCLUSION: Hypertrophy of the left ventricle, ejection fraction 70%. 2D ECHO: Long axis view shows normal sized left ventricle with hypertrophy of the left ventricle. Left atrium normal. Aortic root shows normal dimension. Aortic leaflets show mild aortic stenosis, grade 4. Chamber view showed normal sized left ventricle, left atrium, right ventricle, right atrium, tricuspid and mitral valve CONCLUSION: Mild aortic stenosis, hypertrophy of the left ventricle, ejection fraction 70%. Doppler study shows trace mitral regurgitation, mild aortic regurgitation, trace tricuspid regurgitation. The patient's aortic valve area 1.2 cm2. Pressure gradient for aortic regurgitation is 487 milliseconds. JOB# [id number]
[2018-11-07] MEDS: Pantoprazole 40 mg EC Tab PO SCH (16:35)
[2018-11-08] MEDS: D5-0.45NS 1,000 ML IV SCH (03:00)
[2018-11-08 07:06] LABS: ANION GAP 9.2 (7.0-16.0); BUN - UREA NITROGEN 11 mg/dL (7-25); CALCIUM SERUM 8.5 mg/dL (8.6-10.3); CARBON DIOXIDE 31.4 mEq/L (21.0-31.0); CHLORIDE 96 mEq/L (98-107); CREATININE - SERUM 0.9 mg/dL (0.7-1.3); GLUCOSE 105 mg/dL (70-105); MAGNESIUM 1.6 mg/dL (1.9-2.7); POTASSIUM SERUM 3.6 mEq/L (3.5-5.1); SODIUM SERUM 133 mEq/L (136-145)
[2018-11-08] MEDS: Pantoprazole 40 mg EC Tab PO SCH ×2 (08:20→16:48)
[2018-11-08] MEDS ORDERED: Mag Sulfate 2gm/50mL Premix 2 GM/50 ML BAG IV ONE (12:21)
--- NOTE | 2018-11-08 12:47 | General Progress Note ---
Subjective - Review of Systems Service Date: 11/08/18 Subjective: Patient clinically stable no acute distress no complaining of palpitation Objective - Results Result Diagrams: 11/07/18 06:10 11/08/18 06:00 Recent Labs: Laboratory Last Values WBC 7.3 Th/cmm (4.8-10.8) 11/07/18 06:10 RBC 3.11 Mil/cmm (3.80-5.80) L 11/07/18 06:10 Hgb 10.9 gm/dL (12-16) L 11/07/18 06:10 Hct 32.3 % (41.0-60) L 11/07/18 06:10 MCV 103.8 fl (80-99) H 11/07/18 06:10 MCH 35.1 pg (27.0-31.0) H 11/07/18 06:10 MCHC Differential 33.8 pg (28.0-36.0) 11/07/18 06:10 RDW 13.1 % (11.5-20.0) 11/07/18 06:10 Plt Count 130 Th/cmm (150-400) L 11/07/18 06:10 MPV 7.9 fl 11/07/18 06:10 Add Manual Diff YES 11/06/18 06:00 Neutrophils % 51.6 % (40.0-80.0) 11/07/18 06:10 Lymphocytes % 36.2 % (20.0-50.0) 11/07/18 06:10 Monocytes % 10.7 % (2.0-10.0) H 11/07/18 06:10 Eosinophils % 1.0 % (0.0-5.0) 11/07/18 06:10 Basophils % 0.5 % (0.0-2.0) 11/07/18 06:10 Neutrophils (Manual) 57 % (40-80) 11/06/18 06:00 Lymphocytes 32 % (20-50) 11/06/18 06:00 Monocytes 10 % (2-10) 11/06/18 06:00 Eosinophils 1 % (0-5) 11/06/18 06:00 Platelet Estimate DECREASED PLATELETS (NORMAL) 11/06/18 06:00 Macrocytosis 2+ 11/06/18 06:00 Rouleaux 2+ 11/06/18 06:00 Smear Path Review 11/07/18 06:10 PT 10.3 SECONDS (9.5-11.5) 11/05/18 14:05 INR 0.99 (0.5-1.4) 11/05/18 14:05 PTT (Actin FS) 25.4 SECONDS (26.0-38.0) L 11/05/18 14:05 Sodium 133 mEq/L (136-145) L 11/08/18 06:00 Potassium 3.6 mEq/L (3.5-5.1) 11/08/18 06:00 Chloride 96 mEq/L (98-107) L 11/08/18 06:00 Carbon Dioxide 31.4 mEq/L (21.0-31.0) H 11/08/18 06:00 Anion Gap 9.2 (7.0-16.0) 11/08/18 06:00 BUN 11 mg/dL (7-25) 11/08/18 06:00 Creatinine 0.9 mg/dL (0.7-1.3) 11/08/18 06:00 Est GFR ( Amer) TNP 11/08/18 06:00 Est GFR (Non-Af Amer) TNP 11/08/18 06:00 BUN/Creatinine Ratio 12.2 11/08/18 06:00 Glucose 105 mg/dL (70-105) 11/08/18 06:00 Calcium 8.5 mg/dL (8.6-10.3) L 11/08/18 06:00 Magnesium 1.6 mg/dL (1.9-2.7) L 11/08/18 06:00 Total Bilirubin 1.2 mg/dL (0.3-1.0) H 11/07/18 06:10 AST 86 U/L (13-39) H 11/07/18 06:10 ALT 39 U/L (7-52) 11/07/18 06:10 Alkaline Phosphatase 72 U/L (34-104) 11/07/18 06:10 Troponin I 0.04 ng/mL (0.01-0.05) 11/06/18 21:15 B-Natriuretic Peptide 507.0 pg/mL (5.0-100.0) H 11/08/18 06:00 Total Protein 5.6 gm/dL (6.0-8.3) L 11/07/18 06:10 Albumin 3.0 gm/dL (4.2-5.5) L 11/07/18 06:10 Globulin 2.6 gm/dL 11/07/18 06:10 Albumin/Globulin Ratio 1.2 (1.0-1.8) 11/07/18 06:10 Tumor Marker AFP 3.1 ng/mL (0.0-8.3) 11/06/18 06:00 Vitamin B12 386 pg/mL (232-1245) 11/06/18 06:00 Folic Acid 3.0 ng/mL (>3.0) L 11/06/18 06:00 Free T4 1.42 ng/dL (0.82-1.77) 11/06/18 06:00 TSH 0.98 uIU/ml (0.34-5.60) 11/06/18 06:00 Urine Source CLEAN C 11/05/18 19:00 Urine Color YELLOW 11/05/18 19:00 Urine Clarity SLIGHT HAZY (CLEAR) 11/05/18 19:00 Urine pH 6.0 (4.6 - 8.0) 11/05/18 19:00 Ur Specific [place] 1.015 (1.005-1.030) 11/05/18 19:00 Urine Protein TRACE mg/dL (NEGATIVE) 11/05/18 19:00 Urine Glucose (UA) NEGATIVE mg/dL (NEGATIVE) 11/05/18 19:00 Urine Ketones 15 mg/dL (NEGATIVE) H 11/05/18 19:00 Urine Blood NEGATIVE (NEGATIVE) 11/05/18 19:00 Urine Nitrate NEGATIVE (NEGATIVE) 11/05/18 19:00 Urine Bilirubin MODERATE (NEGATIVE) H 11/05/18 19:00 Urine Ictotest POSITIVE (NEGATIVE) H 11/05/18 19:00 Urine Urobilinogen 2.0 E.U./dL (0.2 - 1.0) 11/05/18 19:00 Ur Leukocyte Esterase NEGATIVE (NEGATIVE) 11/05/18 19:00 Urine RBC NONE SEEN /hpf (0-5) 11/05/18 19:00 Urine WBC 0-2 /hpf (0-5) 11/05/18 19:00 Ur Epithelial Cells RARE /lpf (FEW) 11/05/18 19:00 Urine Bacteria NONE SEEN /hpf (NONE SEEN) 11/05/18 19:00 Stool Occult Blood POSITIVE (NEGATIVE) H 11/07/18 20:15 Hepatitis A IgM Ab Negative (Negative) 11/06/18 06:00 Hep Bs Antigen Negative (Negative) 11/06/18 06:00 Hep B Core IgM Ab Negative (Negative) 11/06/18 06:00 Hepatitis C Antibody <0.1 s/co ratio (0.0-0.9) 11/06/18 06:00 - Physical Exam Vitals and I&O: Vital Signs Temp 97.8 F 11/08/18 08:00 Pulse 82 11/08/18 08:19 Resp 20 11/08/18 08:00 BP 142/80 11/08/18 08:19 Pulse Ox 99 11/08/18 07:19 Intake & Output 11/07/18 11/08/18 11/08/18 18:59 06:59 18:59 Intake Total 1600 1450 1068 Balance 1600 1450 1068 Weight (lbs) 74.843 kg 74.843 kg 75.296 kg Intake: Intake, IV Amount 1000 1000 768 D5-0.45NS 1,000 ml @ 80 1000 1000 768 mls/hr IV .[id number] [facility] Rx #:[id number] Oral 600 450 300 Other: # Voids 3 3 # Bowel Movements 0 1 Stool Characteristics Liquid Liquid Brown Brown Weight Source Bedscale Bedscale Bedscale Active Medications: Current Medications Acetaminophen (Tylenol) 650 mg PO Q4H PRN PRN Reason: Pain Or Fever above 101 Stop: 01/04/19 19:22 Al Hydrox/Mg Hydrox/Simethicone (Maalox) 30 ml PO Q6H PRN PRN Reason: Dyspepsia Stop: 01/04/19 19:22 Last Admin: 11/07/18 18:08 Dose: 30 ml Albuterol Sulfate (Albuterol 2.5mg/3ml Neb Ud) 2.5 mg HHN Q2HRT PRN PRN Reason: Shortness of Breath or Wheeze Stop: 01/04/19 19:22 Alprazolam (Xanax) 0.5 mg PO DAILY PRN; Protocol PRN Reason: Anxiety Stop: 01/05/19 08:59 Last Admin: 11/07/18 20:30 Dose: 0.5 mg Citalopram Hydrobromide (Celexa) 20 mg PO DAILY [facility]; Protocol Stop: 01/05/19 08:59 Last Admin: 11/08/18 08:21 Dose: 20 mg Magnesium Sulfate (Magnesium Sulfate Premix) 2 gm in 50 mls @ 25 mls/hr IV X1 ONE Stop: 11/08/18 14:20 Ipratropium [place] (Atrovent Neb 0.5mg/2.5ml) 0.5 mg HHN Q2HRT PRN PRN Reason: Shortness of Breath or Wheeze Stop: 01/04/19 19:22 Lisinopril (Zestril) 20 mg PO DAILY [facility] Stop: 01/05/19 08:59 Last Admin: 11/08/18 08:19 Dose: 20 mg Morphine Sulfate (Morphine) 2 mg IVP Q4H PRN PRN Reason: Pain (Severe) Stop: 01/04/19 19:22 Nitroglycerin (Nitrostat) 0.4 mg SL Q5MIN PRN PRN Reason: Chest Pain Stop: 01/04/19 19:22 Ondansetron HCl (Zofran) 4 mg IV Q8H PRN PRN Reason: Nausea / Vomiting Stop: 01/04/19 19:22 Pantoprazole Sodium (Protonix) 40 mg PO BID [facility] Stop: 01/06/19 16:59 Last Admin: 11/08/18 08:20 Dose: 40 mg Rivaroxaban (Xarelto) 10 mg PO DAILY [facility] Stop: 01/07/19 08:59 Last Admin: 11/08/18 08:20 Dose: 10 mg Zolpidem Tartrate (Ambien) 10 mg PO HS PRN PRN Reason: Insomnia Stop: 01/04/19 19:22 General: Alert, No acute distress Neck: Supple, +2 carotid pulse wo bruit Cardiovascular: Systolic murmurs (atrial fibrillation), Other Lungs: Clear to auscultation, Normal air movement Abdomen: Bowel sounds (soft), Soft Extremities: Clubbing, Pulses, Tender Neurological: Cranial nerves 3-12 NL, Reflexes 2+ Assessment/Plan - Problem List Patient Problems: All Active Problems WEAKNESS AND INCONTINENCE (Acute) - Assessment Assessment: Atrial fibrillation Hypokalemia Macrocyte tic anemia anemia Thrombocytopenia - Plan Plan: Continue present management will stop digoxin potassium supplement and is able supplement
[2018-11-08] MEDS: Maalox 30 mL Cup PO PRN (13:10)
--- NOTE | 2018-11-08 13:12 | Discharge Summary ---
DATE OF DISCHARGE: 11/08/2018 CHIEF COMPLAINT: Generalized weakness. FINAL DIAGNOSES: New onset atrial fibrillation, which is controlled, generalized weakness, anemia with marked macrocytosis, thrombocytopenia, hyponatremia, , renal insufficiency, possible cirrhosis, elevated troponin which was negative for [place]. HISTORY OF PRESENT ILLNESS: This is an 82-year-old male with history of hypertension, depression, anxiety, alcohol abuse, admitted through the ER secondary to generalized weakness. The patient did not have a regular heartbeat, admitted for further management. PHYSICAL EXAMINATION: VITAL SIGNS: Blood pressure 142/80, respiration 20, pulse 82, temperature 97.8. GENERAL: Elderly male, appears stated age. NECK: Supple. No mass. LUNGS: Equal breath sounds, few rhonchi. HEART: Systolic ejection murmur. Irregularly irregular. ABDOMEN: Soft, globular. EXTREMITIES: Positive excoriations. HOSPITAL COURSE: The patient was admitted to the telemetry, continue IV hydration. Electrolytes were adjusted. Troponin was negative. The patient was referred to a Cardiology, started on anticoagulation. The patient remained stable. The patient was seen by rehabilitation. The patient to be discharged to half-way facility. CONDITION ON DISCHARGE: Fair. DISCHARGE INSTRUCTIONS: The patient to be admitted to the half-way facility. [facility]# [id number]
== END 2018-11-08 18:20 | DRG 309 ==
LOC: ER 13:24 → TELE 16:30
PROVIDERS: ADMIT Internal Medicine; ATTEND Internal Medicine
DX: I48.91 Unspecified atrial fibrillation (principal); E87.1 Hypo-osmolality and hyponatremia; D64.9 Anemia, unspecified; E87.6 Hypokalemia; N28.9 Disorder of kidney and ureter, unspecified; I10 Essential (primary) hypertension; F17.210 Nicotine dependence, cigarettes, uncomplicated; R73.9 Hyperglycemia, unspecified; D69.6 Thrombocytopenia, unspecified; D50.9 Iron deficiency anemia, unspecified; K74.60 Unspecified cirrhosis of liver; E86.0 Dehydration
CPT/HCPCS: 36415-UA; 74000-TC; 80048-TC; 80053-TC; 80074-90; 81001-TC; 82105-90; 82270-TC; 82607-90; 82746-90; 83735-TC; 83880-TC; 84439-90; 84443-TC; 84484-TC; 85007-TC; 85025-TC; 85610-TC; 93005; 94760; 97530; J1650; J2001; J3475; J3480; J7030; X3904; Z7610